=== PATIENT | female | born 1955 | race Caucasian/White ===

== ENCOUNTER 2022-02-01 10:58 | Day surgery (SDC) | payer OTHER, MEDICARE ==
[2022-01-29 13:50] VITALS: BMI 37.0
[2022-02-01] MEDS ORDERED: LIDOCAINE 1% P/F 10 MG/ML VIAL ONE (11:31)
[2022-02-01] MEDS ORDERED: BSS (NA/CA/MG/K) BALANCED SALT SOLUTION OPHTH SOLN 15 ML BOTTLE ONE (11:31)
[2022-02-01] MEDS ORDERED: NEO/POLYMYX B SULF/DEXAMETH OPHTHALMIC 5ML BOTTLE ONE (11:31)
[2022-02-01] MEDS ORDERED: CARBACHOL 0.01% INTRA-OCULAR 1.5 ML VIAL ONE (11:31)
[2022-02-01] MEDS ORDERED: TETRACAINE 0.5% OPHTH SOLN 2 ML BOTTLE ONE (11:31)
[2022-02-01 11:41] VITALS: TEMP 97.2
[2022-02-01] MEDS: CYCLOPENTOLATE 2% OPHTH SOLN 2 ML BOTTLE ONE ×2 (11:45→11:50)
[2022-02-01] MEDS: TROPICAMIDE 1% OPHTH SOLN 15 ML BOTTLE ONE ×2 (11:45→11:50)
[2022-02-01] MEDS: CIPROFLOXACIN 0.3% EYE DROPS 5 ML BOTTLE ONE ×2 (11:45→11:50)
[2022-02-01] MEDS: PHENYLEPHRINE 2.5% OPHTH SOLN 15 ML BOTTLE ONE ×2 (11:45→11:50)
[2022-02-01] MEDS ORDERED: MIDAZOLAM HCL 2 MG/2 ML SINGLE DOSE VIAL ONE (12:12)
[2022-02-01 13:02] VITALS: BP 125/76; PULSE 83
== END 2022-02-01 13:06 | disposition home or self-care (01) ==
LOC: FASU 10:58
PROVIDERS: ATTEND Ophthalmology
PROC: 08RK3JZ Replacement of Left Lens with Synthetic Substitute, Percutaneous Approach (ICD-10-PCS; principal; 2022-02-01 12:17)
DX: H26.8 Other specified cataract (principal)
CPT/HCPCS: 66984; V2632